=== PATIENT | female | born 1995 | race Caucasian/White ===

== ENCOUNTER 2017-12-06 17:17 | Emergency (ER) | payer MEDICAID ==
[~2017-12-06] VITALS: Ht 157.5 cm; Wt 75.0 kg
[~2017-12-06 17:17] MED LIST: NO HOME MEDS
[2017-12-06 17:21] VITALS: BP 120/86
[2017-12-06] MEDS ORDERED: IBUP-1984 PO (17:36)
[2017-12-06] MEDS ORDERED: PENI250T2 PO (17:36)
== END 2017-12-06 18:05 | disposition home or self-care (01) ==
LOC: ER 17:17
DX: K08.89 Other specified disorders of teeth and supporting structures (principal); F17.200 Nicotine dependence, unspecified, uncomplicated; Z79.899 Other long term (current) drug therapy
CPT/HCPCS: 99283

== ENCOUNTER 2018-06-25 10:23 | Emergency (ER) | payer MEDICAID ==
[~2018-06-25] VITALS: Ht 157.5 cm; Wt 73.9 kg
[2018-06-25] MEDS ORDERED: ibuprofen tablet 400 MG TABLET PO ONE (10:55)
[2018-06-25] MEDS ORDERED: acetaminophen 325mg tablet PO ONE (10:55)
[2018-06-25 11:21] LABS: URINE HCG NEGATIVE (NEG)
[2018-06-25 11:24] LABS: CLARITY,URINE SLIGHTLY CLOUDY (Clear); COLOR,URINE YELLOW (Yellow); GLUCOSE, URINE NEGATIVE (Neg); KETONES,URINE NEGATIVE (Neg); LEUKOCYTE ESTERASE ,URINE SMALL (Neg); NITRITES, URINE POSITIVE (Neg); OCCULT BLOOD,URINE MODERATE (Neg); PROTEIN,URINE NEGATIVE (Neg); UROBILINOGEN,URINE 0.2 E.U/dL (0.2-1.0)
[2018-06-25 11:25] LABS: UA COLLECTION TYPE CLN CATCH MIDSTREAM
[2018-06-25 11:38] LABS: BACTERIA,URINE 4+ /HPF (Neg); MUCUS STRANDS NONE SEEN /LPF (Neg); RBC,URINE 0-2 /HPF (0-2); SQUAMOUS EPITHELIAL CELL,UR FEW /LPF (FEW); TRANSITIONAL EPI CELLS,URINE FEW /HPF; WBC,URINE 0-4 /HPF (0-4)
[2018-06-25] MEDS ORDERED: NITR100C6 PO (11:47)
[2018-06-25 11:51] VITALS: BP 113/72
== END 2018-06-25 12:14 | disposition home or self-care (01) ==
LOC: ER 10:23
DX: G89.29 Other chronic pain (principal); M54.5 Low back pain; N39.0 Urinary tract infection, site not specified; M25.551 Pain in right hip; Z79.899 Other long term (current) drug therapy
CPT/HCPCS: 72170; 81001; 81025; 87077; 87088; 87186; 99284